=== PATIENT | female | born 1955 | race Caucasian/White ===

== ENCOUNTER 2019-07-05 12:50 | Outpatient (CLI) | payer OTHER ==
--- NOTE | 2019-07-05 14:07 | RAD ---
LUMBAR SPINE SERIES 3 VIEWS WITH FLEXION AND EXTENSION: HISTORY: Lumbar radiculopathy. FINDINGS: Vertebral bodies are normal in height. Some minimal disc narrowing at L3-4 and l4-5, and minimal spon dylolisthesis of L4 on L5 of approximately 6-7 mm, not definitely changing between the flexion and ex tension views. IMPRESSION: 1. Grade I spondylolisthesis of L4 on L5. 2. Minimal disc narrowing at L3-4, L4-5, and L5-S1. POS: [facility]
--- NOTE | 2019-07-05 15:48 | MRI ---
EXAM: CERVICAL SPINE MRI WITHOUT CONTRAST: 07/05/19 COMPARISON: None. TECHNIQUE: Cervical spine MRI is performed without intravenous gadolinium administration. Multisequential, multi planar imaging is performed. FINDINGS: Appropriate T1 marrow signal intensity of the cervical vertebrae. Cervical spine vertebral body heigh t is maintained. There is no fracture. No significant STIR hyperintensity to suggest vertebral body e amena or ligamentous injury. Visualized brain parenchyma, cervicomedullary junction, cervical cord and the upper thoracic cord hav e a normal size and signal intensity. Spondylolisthesis. 2.3 mm of anterolisthesis of C3 upon C4. 1.7 mm of anterolisthesis of C4 upon C5. 3.3 mm of retrolisthesis of C6 upon C7. C2-C3: Broad based disc osteophyte complex without significant central canal stenosis. Moderate bila teral neural foraminal narrowing due to uncovertebral hypertrophy. C3-C4: Broad based disc osteophyte complex effaces the subarachnoid space. There is a left paracentr al component that mildly deforms the left hemicord. Moderate central canal stenosis. Right neural for amen is patent. Moderate left neural foraminal narrowing due to uncovertebral hypertrophy. C4-C5: Broad based disc osteophyte complex with a left paracentral component. There is mild central c anal stenosis. Mild bilateral neural foraminal narrowing. C5-C6: Broad based disc osteophyte complex with a central protrusion effaces the subarachnoid space. There is deformity of the central and right paracentral cervical cord without cord hyperintensity. Mo derate central canal stenosis. Mild right neural foraminal narrowing. Left neural foramen appears to be patent. C6-C7: Broad based disc osteophyte complex with a central disc protrusion. Deformity of the midline a spect of the cervical cord without cord hyperintensity. Mil central canal stenosis. Mild right neural foraminal narrowing. Left neural foramen is patent. C7-T1: No significant central canal stenosis or significant neural foraminal narrowing. T2-T3: There is a left paracentral disc protrusion with mild central canal stenosis. T3-T4: Small right paracentral disc protrusion. No significant central canal stenosis. IMPRESSION: Multilevel degenerative changes of the cervical spine as above. POS: [facility]
--- NOTE | 2019-07-05 15:59 | MRI ---
MRI LUMBAR SPINE WITH AND WITHOUT CONTRAST: HISTORY: Lumbar radiculopathy. Left leg and back pain. COMPARISON: None. FINDINGS: Appropriate T1 marrow signal intensity of the lumbar vertebrae. Lumbar spine vertebral body height i s maintained. No fracture. No significant STIR hyperintensity to suggest vertebral edema or ligamen tous injury. Appropriate signal intensity of the visualized paraspinal muscles. Appropriate signal intensity of the visualized solid organs. Conus medullaris terminates at the anterior aspect of L1. T12-L1: Adequate disk hydration. No significant central canal stenosis or significant neural forami nal narrowing. L1-L2: Adequate disk hydration. No significant central canal stenosis or significant neural foramin al narrowing L2-L3: Adequate disk hydration. No significant central canal stenosis or significant neural foramin al narrowing L3-L4: Adequate disk hydration. Minimal ligamentum flavum thickening and facet hypertrophy. No si gnificant posterior disk abnormality. Minimal central canal stenosis due to posterior element hypert rophy. Mild bilateral neural foraminal narrowing. L4-L5: Posterior laminectomy defect. Adequate disk hydration. Generalized disk bulge without signi ficant central canal stenosis. Minimal encroachment upon the left subarticular zone secondary to dis k material and facet hypertrophy. No significant obscuration of the traversing left L5 nerve root. Mild right foraminal narrowing. Mild to moderate left foraminal narrowing. There appears to be mass effect upon the extraforaminal left L4 nerve root due to disk material. L5-S1: Adequate disk hydration. There is a T2 and STIR hyperintensity, with associated enhancement along the right foraminal component of the disk, compatible with a small annular fissure. Mild facet hypertrophy and ligamentum flavum thickening is noted. There is no significant central canal stenos is. Posterior laminectomy defect is identified. Mild bilateral neural foraminal narrowing. Postcontrast images do not demonstrate any abnormal enhancement within the thecal sac including the c auda equina conus medullaris. There is no abnormal enhancement of the vertebral bodies. Slightly prominent urinary bladder is noted. If there is concern for bladder outlet obstruction or d ecreased emptying of the bladder, consider pre- and postvoid ultrasound. IMPRESSION: 1. Laminectomy defect at L4-L5 and L5-S1. There is no evidence of high-grade central canal stenosis . There is mild narrowing of the left subarticular zone at L4-L5. Nevertheless, there is no signifi cant mass effect upon the traversing left L5 nerve root. 2. There is mass effect and partial obscuration of the extraforaminal left L4 nerve root. 3. Small annular fissure in the right foraminal component of the L5-S1 disk. POS: [facility]
== END 2019-07-05 12:51 | disposition home or self-care (01) ==
LOC: TBSIIMAG 12:50
PROVIDERS: ATTEND Neurological Surgery
DX: M50.30 Other cervical disc degeneration, unspecified cervical region (principal); M51.16 Intervertebral disc disorders with radiculopathy, lumbar region; M43.16 Spondylolisthesis, lumbar region; M51.37 Other intervertebral disc degeneration, lumbosacral region; M47.812 Spondylosis without myelopathy or radiculopathy, cervical region
CPT/HCPCS: 72100; 72141; 72158; 82565

== ENCOUNTER 2019-08-29 15:06 | Outpatient (CLI) | payer OTHER ==
--- NOTE | 2019-08-29 16:10 | RAD ---
EXAM: XR Lumbar Spine 2 Or 3 View DATE: 08/29/2019 12:00 AM INDICATION: Postoperative lumbar spine COMPARISON: Lumbar spinal radiograph dated July 05, 2019 FINDING: There are bilateral pedicle screws at L4 and L5 with interconnecting rods. The instrumentat ion projects in the expected position without gross evidence of complication. There is improvement in the grade 1 anterolisthesis of L4 and L5. There is residual 4 mm of anterior translation of L4 on L5. There are laminectomy changes at L4 and L5. The remaining lumbar vertebral levels appear within normal limits. Mild disc degenerative disease at L5-S1 is present. There is diffuse osteopenia. IMPRESSION:Postoperative lumbar spine
== END 2019-08-29 15:07 | disposition home or self-care (01) ==
LOC: TBSIIMAG 15:06
PROVIDERS: ATTEND Neurological Surgery
DX: M54.16 Radiculopathy, lumbar region (principal); M54.5 Low back pain; Z98.890 Other specified postprocedural states
CPT/HCPCS: 72100

== ENCOUNTER 2019-10-09 15:45 | Outpatient (CLI) | payer MEDICARE ==
--- NOTE | 2019-10-09 16:04 | RAD ---
Exam: 2 views lumbar spine COMPARISON: 08/29/2019 HISTORY: Lumbar fusion FINDINGS: Laminectomy defect at L5. Stable bilateral transpedicular screw at L4-L5. Stable 4.1 mm of anterolisthesis of L4 upon L5. No perihardware lucency. Stable disc space height and vertebral body heights. IMPRESSION: Unchanged lumbar fusion.
== END 2019-10-09 15:46 | disposition home or self-care (01) ==
LOC: TBSIIMAG 15:45
PROVIDERS: ATTEND Neurological Surgery
DX: M43.16 Spondylolisthesis, lumbar region (principal); Z98.1 Arthrodesis status
CPT/HCPCS: 72100